=== PATIENT | female | born 1995 | race Caucasian/White ===

== ENCOUNTER 2019-02-17 16:16 | Emergency (ER) | payer OTHER ==
[~2019-02-17] VITALS: Ht 170.2 cm; Wt 83.9 kg
== END 2019-02-17 20:45 | disposition home or self-care (01) ==
LOC: ER 16:16
DX: S93.512A Sprain of interphalangeal joint of left great toe, initial encounter (principal); W22.8XXA Striking against or struck by other objects, initial encounter; Y93.89 Activity, other specified; Y92.098 Other place in other non-institutional residence as the place of occurrence of the external cause; Y99.8 Other external cause status

== ENCOUNTER 2020-11-24 15:19 | Emergency (ER) | payer OTHER ==
[~2020-11-24] VITALS: Ht 167.6 cm; Wt 81.2 kg
[2020-11-24] MEDS ORDERED: NAPROXEN500 MG PO (20:47)
[2020-11-24] MEDS ORDERED: METRONIDAZOLE500 MG PO (20:47)
[2020-11-24] MEDS ORDERED: PYRIDIUM200 MG PO (20:49)
== END 2020-11-24 20:56 | disposition home or self-care (01) ==
LOC: ER 15:19
DX: N88.8 Other specified noninflammatory disorders of cervix uteri (principal); N39.0 Urinary tract infection, site not specified; L29.2 Pruritus vulvae